=== PATIENT | female | born 1960 | race Caucasian/White ===

== ENCOUNTER 2019-01-06 14:48 | Outpatient (REF) | payer OTHER, SELFPAY ==
--- NOTE | 2019-01-06 14:30 | PAPFT_PTH ---
PATIENT: Giuliana Flores LOC: [facility] U#:[id number] AGE/SX: 58/F ROOM: RE01/06/[address]: NATIVIDAD Marrero : 1960 BED: DIS: 01/06/2019 SPEC #: [id number] RECD: 01/06/19 18:30 STATUS: JOEYJono REQ #: [id number] TISH: 01/06/19 14:[address]: Monica Limon DEPT: [facility] Cytology RECD BY: Toshia Lott ENTERED: 01/06/19 18:30 SP TYPE: PAPFT MAYA DR: Aleisha Jay Tissues: 1 - CX/ENDOCX FOR PAP SMEARS Procedures: PAP THIN PREP/UVM Screening HPV DNA PROBE Comments: [id number]
== END 2019-01-06 15:08 ==
LOC: LBN 14:48
PROVIDERS: PCP Family Medicine; Visit Provider Nurse Practitioner Family
DX: Z12.4 Encounter for screening for malignant neoplasm of cervix (principal); Z11.51 Encounter for screening for human papillomavirus (HPV)
CPT/HCPCS: 88142; 87624

== ENCOUNTER 2019-03-12 09:53 | Outpatient (CLI) | payer OTHER, SELFPAY ==
--- NOTE | 2019-03-12 15:57 | DI.MAMMO_ITS ---
EXAM: MG MAMMO SCREENING CLINICAL HISTORY: SCREENING Z12.39 TECHNIQUE: Bilateral full field digital CC and MLO mammographic images were obtained with 3D tomosyn thesis and utilizing computer aided detection (CAD). COMPARISON: Available for comparison. FINDINGS: Masses/Architectural Distortion: None seen. Microcalcifications: No suspicious pleomorphic-type are seen. Skin Thickening/Nipple Retraction: None. IMPRESSION: 1. No significant interval change with no specific features of malignancy noted. 2. Unless there is more urgent need, screening mammography is recommended, as per [place] [employer] guidelines. ACR BI-RAD Category- 1 Negative Breast Density - Category A - Almost entirely fatty A negative radiographic report should not delay biopsy if a dominant or clinically suspicious mass is present. Up to ten percent of cancers are not identified on mammography. A negative report may reinforce clinical impression. Adenosis and dense breasts may obscure an underlying neoplasm. False positive reports average 6 to 10%. Patient will receive a letter notifying them of these results.
== END 2019-03-12 10:13 ==
PROVIDERS: PCP Family Medicine; Visit Provider Family Medicine
DX: Z12.31 Encounter for screening mammogram for malignant neoplasm of breast (principal)
CPT/HCPCS: 77063; 77067

== ENCOUNTER 2019-09-24 08:33 | Emergency (ER) | payer OTHER, SELFPAY ==
[2019-09-24 08:39] VITALS: BP 133/86; PULSE 71; RESP 14; TEMP 36.8; O2SAT 96
--- NOTE | 2019-09-24 08:55 | W.ED.GENAD ---
Discharge Plan Disposition Patient Disposition: HOME Condition: Stable Discharge Details Chief Complaint: Orthopedic Clinical Impression: Bursitis, prepatellar, left Primary Care Provider: Aleisha Jay ED Provider: Brooke Alexis Home Meds and New Rx's Prescriptions: Continued multivitamin [Daily Multi-Vitamin] Tablet 1 tab PO DAILY RF: 0 estradiol [Estrace] 0.01 % (0.1 mg/gram) cream 42.5 gm VG twice weekly Qty: 1 RF: 4 polyethylene glycol 3350 17 gram/dose powder 238 g PO ONCE Qty: 238 RF: 0 bisacodyl [Dulcolax (bisacodyl)] 5 mg tablet,delayed release (DR/EC) 5 mg PO ONCE Qty: 4 RF: 0 atenolol 25 MG tablet 25 mg PO DAILY RF: 0 lorazepam 0.5 MG tablet 0.5 mg PO PRN Qty: 5 RF: 0 calcium carbonate-vitamin D3 1 EACH tablet,chewable 1 ea PO DAILY RF: 0 Discharge Instructions Instructions: Knee Bursitis (ED) Additional Instructions: Rest. Activities as tolerated. Elevate injury to prevent swelling. Roque wrap for compression. Ice to the area of discomfort for 15 min. 3-5 times daily. Motrin every 8 hours with food or Tylenol every 6 hours for soreness if needed over the counter for comfort. Followup with orthopedic doctor as discussed if not improving in one week. Return for any worsening or concerns sooner if needed. Referrals: Don Guevara MD [ [facility] STAFF PHYSICIAN] - Medical Decision Making Is a very pleasant 59-year-old patient presenting the emergency room with complaints of fall directly onto left knee. Please see HPI for details. Patient exam is consistent with prepatellar bursitis however does have focal ecchymosis and patella tenderness. Patient did fall directly onto her left knee. Will check x-ray to rule out patella fracture. Patient agrees with this plan of care. Verbal report from radiologist reports no acute fracture. Discussed x-ray results. Offered Roque and consents, offered crutches or cane and declines. Discussed rice, expectation of improvement and plan of care. Suspect focal contusion and prepatellar bursitis of the left knee The patient was stable and requested discharge. Prior to discharge, my usual and customary return precautions were reviewed with the patient - this included follow-up instructions and reasons to return to the Emergency Department if conditions worsens, does not improve as expected, or other new concerns arise. HPI General Date/Time Provider Initiated Documentation: 09/24/19 08:34. HPI Narrative: This is a very pleasant 59-year-old patient presenting to the emergency room for complaints of left knee pain. Patient reports she was in her home 2 days ago in the morning and she was in her kitchen and heard a startling noise, found to groundhog beneath her stove. Patient was extremely startled. Jumped and landed on her left knee directly. Patient reports swelling which has persisted for the last 2 days. Some improvement in swelling today. Patient reports an intense tightness to the left knee and some burning discomfort. Patient is able to bear weight. Denies numbness, tingling or weakness. Patient denies striking head neck or back. Has a small abrasion on the left anterior knee. Patient has been using ice frequently. Patient reports mild pain. Denies any history of injury to the knee in the past. Patient denies any other extremity injuries. Patient denies any recent Covid exposures. Patient denies cough, difficulty breathing shortness breath or wheezing. Denies any ill feeling. Related Data Home Medications Medication Instructions Recorded Confirmed atenolol 25 mg PO DAILY 08/07/12 03/14/19 calcium carbonate-vitamin D3 1 ea PO DAILY tab.chew 08/07/12 03/14/19 lorazepam 0.5 mg PO PRN #5 tab 08/07/12 03/14/19 estradiol 42.5 gm VG twice weekly #1 tube 01/06/19 03/14/19 multivitamin 1 tab PO DAILY 01/06/19 03/14/19 bisacodyl 5 mg tablet,delayed 5 mg PO ONCE #4 tab 03/14/19 03/14/19 release polyethylene glycol 3350 17 238 g PO ONCE #238 gm 03/14/19 03/14/19 gram/dose oral powder Previous Rx's Medication Instructions Recorded estradiol 42.5 gm VG twice weekly #1 tube 01/06/19 bisacodyl 5 mg tablet,delayed 5 mg PO ONCE #4 tab 03/14/19 release polyethylene glycol 3350 17 238 g PO ONCE #238 gm 03/14/19 gram/dose oral powder Allergies Allergy/AdvReac Type Severity Reaction Status Date / Time Penicillins Allergy Severe Breathing Verified 03/14/19 14:04 Difficulties General Stated Complaint: Orthopedic MEG: 4 Review of Systems All systems reviewed & are unremarkable except as noted in HPI and below PFSH Medical History Abnormal Pap smear of cervix 2005 Neg colpo findings 2007 Neg colpo findings 2010 Neg pap/+HPV. no colpo 2012 Neg pap/- HPV. Hypertension Morbid obesity Panic disorder Social History Smoking/Tobacco Use Status: Never Alcohol Intake: current Alcohol Intake frequency: holidays/special occasions only Drug use: Never Substance use type: does not use current occupation: Admission counselor at [employer] Current gender identity: female Do you feel safe at home: Yes Do you feel safe in your relationship?: Yes Female Reproductive History Menstrual Menopause type: natural History History 2 Para 1 Hx # Term Pregnancies Multiple births Hx # Pregnancies Ectopic pregnancies AB induced Hx Number of Living Children AB spontaneous Exam Narrative Exam Narrative: CONST: Healthy appearing patient, in no acute distress. Well hydrated. Alert and oriented. EYES: General normal appearance. Alignment normal. Eyelids normal. Conjunctiva normal. NECK: Normal visual inspection. FROM. Trachea midline. No Midline tenderness. CHEST: Normal insepection of the chest. RESP: Normal respiratory effort. Speaking full sentences. No cough. No audible wheezing. No retractions. CARDIO: No JVD. MUSCULOSKELETAL: Normal Gait. Upper extremities full range of motion. Right lower extremity exam benign. Left lower extremity reveals full range of motion of the hip. Straight leg raise intact. Patient has focal ecchymosis and swelling noted to the left knee. Exam consistent with prepatellar bursitis. Patient does have notable patella tenderness with palpation. No significant posterior knee pain with palpation. Patient has some limitation to flexion due to tightness. No obvious pain with valgus or varus stress of the knee. No obvious laxity. No calf pain with palpation. No pain distally. Distal neurovascularly intact. SKIN: Normal. Dry. No rashes. NEURO: Alert and awake. Speech clear. PSYCH: Normal affect. Cooperative. Course Vital Signs Vital signs: Vital Signs Temperature 36.8 C 09/24/19 08:39 Pulse 71 09/24/19 08:39 Respiratory Rate 14 09/24/19 08:39 Blood Pressure 133/86 09/24/19 08:39 Pulse Oximetry 96 09/24/19 08:39 Temperature 36.8 C 09/24/19 08:39 Pulse 71 09/24/19 08:39 Respiratory Rate 14 09/24/19 08:39 Respiratory Effort Non-Labored 09/24/19 08:42 Blood Pressure 133/86 09/24/19 08:39 Blood Pressure Position Sitting 09/24/19 08:39 Pulse Oximetry 96 09/24/19 08:39 Oxygen Delivery Method Room Air 09/24/19 08:39 Oxygen Flow Rate 0 09/24/19 08:39 Pain Level 10 09/24/19 08:43
--- NOTE | 2019-09-24 09:17 | DI.RAD_ITS ---
EXAM: XR KNEE LT 4V AP,LAT,YULIET,PAT CLINICAL HISTORY: pain, injury. TECHNIQUE: 2D digital imaging was performed. COMPARISON: No exams were available for comparison FINDINGS: BONES: No acute fracture is present. No bony destructive lesion is seen. JOINTS: The knee is normally aligned. No joint effusion is seen. Periarticular spurring is noted grea test at the patellofemoral joint. There is mild patellofemoral joint space narrowing. SOFT TISSUE: There is marked soft tissue swelling seen anterior to the patella.. IMPRESSION: Prepatellar edema or hematoma. No evidence of fracture. DATA REPOSITORY: RADIATION DOSE DELIVERED:
== END 2019-09-24 10:40 | disposition home or self-care (01) ==
PROVIDERS: Emergency Provider Physician Assistant; PCP Family Medicine
DX: M70.42 Prepatellar bursitis, left knee (principal); W19.XXXA Unspecified fall, initial encounter; I10 Essential (primary) hypertension
CPT/HCPCS: 99283; 73564

== ENCOUNTER 2020-09-26 12:02 | Emergency (ER) | payer OTHER, SELFPAY ==
--- NOTE | 2020-09-26 12:11 | ED.GENADUL_ITS ---
Discharge Plan Disposition Patient Disposition: HOME Condition: Good Discharge Details Clinical Impression: Tick bite Primary Care Provider: Aleisha Jay ED Provider: Danni Miller Home Meds and New Rx's Prescriptions: Continued multivitamin [Daily Multi-Vitamin] Tablet 1 tab PO DAILY RF: 0 estradiol [Estrace] 0.01 % (0.1 mg/gram) cream 42.5 gm VG twice weekly Qty: 1 RF: 4 polyethylene glycol 3350 17 gram/dose powder 238 g PO ONCE Qty: 238 RF: 0 bisacodyl [Dulcolax (bisacodyl)] 5 mg tablet,delayed release (DR/EC) 5 mg PO ONCE Qty: 4 RF: 0 lorazepam 0.5 MG tablet 0.5 mg PO PRN Qty: 5 RF: 0 calcium carbonate-vitamin D3 1 EACH tablet,chewable 1 ea PO DAILY RF: 0 lidocaine HCl 3 % cream 1 applic TP BID PRN (Reason: pain) Qty: 28.3 RF: 0 atenolol 25 mg tablet 50 mg PO DAILY RF: 0 sertraline 50 mg tablet 50 mg PO DAILY RF: 0 Discharge Instructions Instructions: Tick Bite (ED) Additional Instructions: The tick that was on your arm today is here to be an [place] dog tick. It did not appear to be significantly embedded or engorged. No prophylaxis is warranted at this time for Lyme disease or other tickborne illness. Please mon itor area for signs infection including redness, warmth, drainage, increased pain, fever/chills. If you develop any of these or the new/worsening symptoms please seek care urgently once again. Otherwise, please follow-up with primary care as needed. Referrals: Aleisha Jay [Primary Care Provider] - Medical Decision Making Patient is a pleasant 60-year-old female presenting today with chief complaint of tick on left arm. Nonengorged deer tick was noted to be on the underside of her left arm. Does not appear to have been on long. This is easily removed by myself. We discussed potential complications. Advised that given the amount of time take is benign as well as the type take no prophylaxis is warranted. Return precautions were discussed, in particular signs of infection. All the questions and concerns were addressed and she is in agreement with plan. HPI General Mode of arrival: ambulatory . Date/Time Provider Initiated Documentation: 09/26/20 12:11 . Limitations to Documentation: no limitations . Information obtained by: patient and RN notes reviewed . History of Present Illness 60 year old F presents to the emergency department with the chief complaint of tick on left arm, described as mild (no pain), and is localized to the left and upper extremity. Patient reports no radiation. Patient started experiencing this hour(s) and it has been constant. No relieving factors improve symptom(s), No exacerbating factors reported . Patient notes no other symptoms.. Patient did receive the following treatments prior to arrival, none Related Data Home Medications Medication Instructions Recorded Confirmed calcium carbonate-vitamin D3 1 ea PO DAILY tab.chew 08/07/12 09/26/20 lorazepam 0.5 mg PO PRN #5 tab 08/07/12 09/26/20 estradiol 42.5 gm VG twice weekly #1 tube 01/06/19 09/26/20 multivitamin 1 tab PO DAILY 01/06/19 09/26/20 bisacodyl 5 mg tablet,delayed 5 mg PO ONCE #4 tab 03/14/19 09/26/20 release polyethylene glycol 3350 17 238 g PO ONCE #238 gm 03/14/19 09/26/20 gram/dose oral powder lidocaine HCl 3 % topical cream 1 applic TP BID PRN #28.3 gm 12/18/19 09/26/20 atenolol 25 mg tablet 50 mg PO DAILY tab 05/27/20 09/26/20 sertraline 50 mg tablet 50 mg PO DAILY 05/27/20 09/26/20 Previous Rx's Medication Instructions Recorded estradiol 42.5 gm VG twice weekly #1 tube 01/06/19 bisacodyl 5 mg tablet,delayed 5 mg PO ONCE #4 tab 03/14/19 release polyethylene glycol 3350 17 238 g PO ONCE #238 gm 03/14/19 gram/dose oral powder lidocaine HCl 3 % topical cream 1 applic TP BID PRN #28.3 gm 12/18/19 Allergies Allergy/AdvReac Type Severity Reaction Status Date / Time Penicillins Allergy Severe Breathing Verified 03/14/19 14:04 Difficulties General MEG: 4 Review of Systems Constitutional Constitutional: Reports as per HPI, Denies chills and Denies fever(s) Musculoskeletal Musculoskeletal: Reports as per HPI Integumentary/Breasts Skin/Breast: Reports as per HPI Neurologic Neurologic: Reports as per HPI, Denies sensory deficit and Denies paresthesias [facility] Medical History (Updated 09/26/20 @ 12:25 by BALDEV Kern) Abnormal Pap smear of cervix 2005 Neg colpo findings 2007 Neg colpo findings 2010 Neg pap/+HPV. no colpo 2012 Neg pap/- HPV. 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 Do you feel safe at home: Yes Do you feel safe in your relationship?: Yes Female Reproductive History Menstrual Menopause type: natural History History 2 Para 1 Hx # Term Pregnancies Multiple births Hx # Pregnancies Ectopic pregnancies AB induced Hx Number of Living Children AB spontaneous Exam Const General: cooperative, healthy appearing, comfortable, no acute distress and well developed Nutritional Appearance: average body habitus and well nourished Orientation: alert and awake Resp Effort & Inspection: normal respiratory effort, able to speak in complete sentences and no respiratory distress Skin General skin exam: other (tick left arm) Neuro General: patient alert and patient awake Cognition: normal cognition Speech: speech normal Gait: normal gait Sensory Exam: no sensory deficits noted Extrem Shoulder/upper arm images: 1. area of tick non-engorged. With no surrounding erythema, warmth or swelli ng. No pain on palpation. Psych Appearance: grossly normal and well kempt Mental Status: mental status grossly normal Speech and Movement: speech and movement normal
[2020-09-26 12:12] VITALS: BP 137/93; PULSE 63; RESP 18; TEMP 36.5; O2SAT 99
== END 2020-09-26 12:31 | disposition home or self-care (01) ==
PROVIDERS: Emergency Provider Physician Assistant; PCP Family Medicine
DX: S40.862A Insect bite (nonvenomous) of left upper arm, initial encounter (principal); W57.XXXA Bitten or stung by nonvenomous insect and other nonvenomous arthropods, initial encounter
CPT/HCPCS: 99281

== ENCOUNTER 2020-12-22 01:46 | Outpatient (CLI) | payer OTHER, SELFPAY ==
--- NOTE | 2020-12-22 15:00 | DI.MAMMO_ITS ---
Exam(s) MAMMO SCREENING EXAM: MAMMO SCREENING CLINICAL HISTORY: screening. TECHNIQUE: Bilateral full field digital CC and MLO mammographic images were obtained with 3D tomosyn thesis and utilizing computer aided detection (CAD). COMPARISON: Prior mammograms dating back to 2011, the most recent being February 2019. FINDINGS: There are no CAD designations. No new significant radiograph findings in the breast There are no new spiculated masses nor malignant appearing microcalcification groups. In the left breast there is an oval nodular density seen anteriorly, medial of center and above the m idline which measures 4 x 3 millimeters, located approximately 4 cm in from the nipple. Not evident on prior studies. In the opposite-right breast there are numerous faintly peripherally calcified danni ign oil cysts. However, this left breast finding has somewhat different appearance. Ultrasound lee mmended. No malignant-appearing microcalcification groups in this region or elsewhere in either breast. No ne w architectural distortion or skin thickening-traction. IMPRESSION: 1. No radiographic evidence of malignancy in the right breast. 2. New 4 x 3 millimeter anterior left breast nodule, well-defined and noncalcified. Ultrasound recom mended. BI-RADS Category 0 - Assessment Incomplete: Need additional imaging evaluation Breast Density - Category B - Scattered areas of fibroglandular density Breast density Category C or D implies that the patient has dense breast tissue. Dense breast tissue can make it harder to find cancer on a mammogram. Dense breast tissue is also associated with an incr eased risk of breast cancer. This information about the result of the mammogram report was provided to the patient to raise their awareness. Use this report when you speak with the patient about their risks for breast cancer, which includes their family history. At that time, you may recommend additional screening tests (Ultrasoun d or MRI) as these tests may add significant information. A negative radiographic report should not delay biopsy if a dominant or clinically suspicious mass is present. Up to ten percent of cancers are not identified on mammography. A negative report may reinforce clinical impression. Adenosis and dense breasts may obscure an underlying neoplasm. False positive reports average 6 to 10%. Patient will receive a letter notifying them of these results.
== END 2020-12-22 02:06 ==
PROVIDERS: PCP Family Medicine; Visit Provider Nurse Practitioner Family
DX: Z12.31 Encounter for screening mammogram for malignant neoplasm of breast (principal); N63.22 Unspecified lump in the left breast, upper inner quadrant; R92.8 Other abnormal and inconclusive findings on diagnostic imaging of breast
CPT/HCPCS: 77063; 77067

== ENCOUNTER 2021-11-16 11:29 | Outpatient (REF) | payer OTHER, SELFPAY ==
[2021-11-17 14:00] LABS: COVID-19 RT-PCR UVMMC Result Negative (Negative)
== END 2021-11-16 11:30 | disposition home or self-care (01) ==
LOC: NCHCN 11:29
PROVIDERS: PCP Family Medicine; Visit Provider Physician Assistant
DX: Z20.822 Contact with and (suspected) exposure to COVID-19 (principal)
CPT/HCPCS: U0003

== ENCOUNTER 2022-05-23 18:59 | Outpatient (REF) | payer OTHER, SELFPAY ==
[2022-05-24 17:32] LABS: HSV 1 DNA Result Negative (Negative); HSV 2 DNA Result Negative (Negative); Varicella Zoster DNA Result Positive ((See Note))
== END 2022-05-23 19:00 | disposition home or self-care (01) ==
LOC: LBN 18:59
PROVIDERS: PCP Family Medicine; Visit Provider Family Medicine
DX: B02.39 Other herpes zoster eye disease (principal)
CPT/HCPCS: 87529; 87798

== ENCOUNTER → 2023-03-20 02:20 | Outpatient (CLI) | payer OTHER, SELFPAY ==
--- NOTE | 2023-03-20 | DI.MAMMO_ITS ---
Exam(s) MAMMO SCREENING EXAM: MAMMO SCREENING CLINICAL HISTORY: SCREENING, Z12.31 TECHNIQUE: Bilateral full field digital CC and MLO mammographic images were obtained with 3D tomosyn thesis and utilizing computer aided detection (CAD). COMPARISON: Available for comparison. FINDINGS: Masses/Architectural Distortion: None seen. Microcalcifications: No suspicious pleomorphic-type are seen. Skin Thickening/Nipple Retraction: None. IMPRESSION: 1. No significant interval change with no specific features of malignancy noted. 2. Unless there is more urgent need, screening mammography is recommended, as per [place] [employer] guidelines. BI-RADS Category 1 - Negative Breast Density - Category A - Almost entirely fatty Breast density category C or D implies that the patient has dense breast tissue. Dense breast tissue is very common and is not abnormal but dense breast tissue can make it harder to find cancer on a ma mmogram. Also, dense breast tissue may increase their breast cancer risk. This information about the result of the mammogram report was provided to the patient to raise their awareness. Use this report when you speak with the patient about their risks for breast cancer, which includes their family hist ory. At that time, you may recommend for more screening tests (Ultrasound or MRI) as they might be us eful based on their risk. A negative radiographic report should not delay biopsy if a dominant or clinically suspicious mass is present. Up to ten percent of cancers are not identified on mammography. A negative report may reinforce clinical impression. Adenosis and dense breasts may obscure an underlying neoplasm. False positive reports average 6 to 10%. Patient will receive a letter notifying them of these results.
== END ==
PROVIDERS: PCP Family Medicine; Visit Provider Family Medicine
DX: Z12.31 Encounter for screening mammogram for malignant neoplasm of breast (principal)
CPT/HCPCS: 77063; 77067

== ENCOUNTER 2024-11-05 03:19 | Outpatient (CLI) | payer OTHER, SELFPAY ==
--- NOTE | 2024-11-05 | DI.RAD_ITS ---
Exam(s) XR CERVICAL SPINE COMP 4-5V EXAM: XR CERVICAL SPINE COMP 4-5V CLINICAL HISTORY: NECK PAIN, M54.2. TECHNIQUE: 2D digital imaging was performed. Five views were performed. COMPARISON: No exams were available for comparison FINDINGS: BONES: No fracture or destructive lesion. Vertebral bodies are unremarkable. There are facet degenerative changes throughout which are greatest at C 2 3 and C7-T1. There is neural foraminal narrowing on left at C6-7 and neural foraminal narrowing on the right at C3-4. DISKS: Intervertebral disc spaces are maintained. There are minimal endplate osteophytes ALIGNMENT: Cervical spinal alignment is within normal limits. The odontoid and atlantoaxial articulations are normal. SOFT TISSUE: Normal. The lung apices are clear. IMPRESSION: Degenerative changes of the facet joints. DATA REPOSITORY: RADIATION DOSE DELIVERED:
== END 2024-11-05 03:39 ==
PROVIDERS: PCP Family Medicine; Visit Provider Nurse Practitioner Family
DX: M54.2 Cervicalgia (principal)
CPT/HCPCS: 72050